=== PATIENT | female | born 1960 | race Caucasian/White ===

== ENCOUNTER 2020-03-05 10:50 | Inpatient (IN) ==
[~2020-03-05 10:50] MED LIST: Famotidine 20 MG/2 ML VIAL IVP ONE
[2020-03-05] MEDS ORDERED: Clindamycin 900 MG/50 ML 900 MG/50 ML IV.SOLN IVPB ONE (11:21)
[2020-03-05] MEDS ORDERED: Ringers Solution, Lactated 1,000 ML IVC SCH ×2 (11:30→16:01)
[2020-03-05] MEDS ORDERED: Pregabalin 50 MG CAPSULE PO ONE (11:31)
[2020-03-05] MEDS ORDERED: Acetaminophen IV 1,000 MG/100 ML INFUS..BTL IVPB ONE (11:31)
[2020-03-05] MEDS ORDERED: Ropivacaine/PF 0.5% 30 ML VIAL ONE (11:42)
[2020-03-05] MEDS ORDERED: *HR* FentaNYL (PF) 100 MCG/2 ML VIAL ONE ×2 (11:42→13:29)
[2020-03-05] MEDS ORDERED: *HR* Midazolam HCl 2 MG/2 ML VIAL ONE (11:42)
[2020-03-05] MEDS ORDERED: ROPIVACAINE/PF/NS 0.25% 1 EACH SYRINGE INTRAART ONE (11:42)
[2020-03-05] MEDS ORDERED: *HR* Succinylcholine 200 MG/10 ML VIAL IVP ONE (11:50)
[2020-03-05] MEDS ORDERED: Dexamethasone 4 MG/ML VIAL ONE (11:50)
[2020-03-05] MEDS ORDERED: Lidocaine -MPF 2% 2 ML VIAL ONE (11:50)
[2020-03-05] MEDS ORDERED: Ondansetron 4 MG/2 ML VIAL ONE ×2 (11:50→12:18)
[2020-03-05] MEDS ORDERED: *HR* Propofol 200 MG/20 ML VIAL IVP ONE (11:51)
[2020-03-05] MEDS ORDERED: Lidocaine HCL 4 ML Topical Solution (Laryng-O-Jet Kit Sterile Pak) TP ONE (11:53)
[2020-03-05] MEDS ORDERED: Ondansetron 4 MG/2 ML VIAL IVP ONE (12:08)
[2020-03-05] MEDS ORDERED: Ondansetron 4 MG/2 ML VIAL IVP PRN ×2 (12:12→16:01)
[2020-03-05] MEDS ORDERED: *HR* Metoprolol 5 MG/5 ML VIAL IVP PRN (12:12)
[2020-03-05] MEDS ORDERED: *HR* FentaNYL (PF) 100 MCG/2 ML VIAL IVP PRN (12:12)
[2020-03-05] MEDS ORDERED: *HR* OxyCODONE Immed Rel 5 MG TABLET PO PRN ×2 (12:12→16:01)
[2020-03-05] MEDS ORDERED: Promethazine Syrup 6.25 MG/5 ML PO PRN (12:12)
[2020-03-05] MEDS ORDERED: Gabapentin 100 MG CAPSULE PO ONE (12:12)
[2020-03-05] MEDS ORDERED: Morphine Sulfate 2 MG/ML SYRINGE IVP PRN (12:14)
[2020-03-05] MEDS ORDERED: Povidone-Iodine 45 ML, Sodium Chloride IRRigation 1,000 ML IR ONE (12:40)
[2020-03-05] MEDS ORDERED: Ethanol\\Acetic Acid\\Na Ace\\Ben 1,000 ML IRRIG.SOLN IR ONE (12:56)
[2020-03-05] MEDS ORDERED: Vancomycin 1,000 MG VIAL ONE (13:00)
[2020-03-05] MEDS ORDERED: *HR* PHENYLEPHRINE 1,000 MCG/10 ML SYRINGE IVP ONE (13:40)
[2020-03-05] MEDS ORDERED: *HR* Rocuronium Bromide 50 MG/5 ML VIAL ONE (14:02)
[2020-03-05 15:53] LABS: Hematocrit 43.1 % (35.3-44.9)
[2020-03-05] MEDS ORDERED: Ibuprofen 600 MG TABLET PO PRN (16:01)
[2020-03-05] MEDS ORDERED: Sennosides 8.6 MG TABLET PO PRN (16:01)
[2020-03-05] MEDS ORDERED: Naloxone 0.4 MG/ML INJ IVP PRN (16:01)
[2020-03-05] MEDS ORDERED: Dextrose Gel 15 GM/37.5 ML TUBE PO PRN ×2 (16:01)
[2020-03-05] MEDS ORDERED: MOM Conc 10 ML UD.LIQ PO PRN (16:01)
[2020-03-05] MEDS ORDERED: *HR* OxyCODONE/APAP 5/325 TABLET PO PRN (16:01)
[2020-03-05] MEDS ORDERED: *HR* Dextrose 50 % in Water (Vial) 50 ML VIAL IVP PRN (16:01)
[2020-03-05] MEDS ORDERED: D5% in Water 1,000 ML IVC PRN (16:01)
[2020-03-05] MEDS ORDERED: Insulin LISPRO 300 UNITS/3 ML VIAL SQ SCH ×2 (16:30→21:00)
[2020-03-05 16:42] VITALS: BP 117/72
[2020-03-05] MEDS ORDERED: Clindamycin 900 MG/50 ML 900 MG/50 ML IV.SOLN IVPB SCH (17:00)
[2020-03-05] MEDS ORDERED: *HR* Enoxaparin 30 MG/0.3 ML SYRINGE SQ SCH ×2 (18:00)
[2020-03-06] MEDS ORDERED: Prenatal Vit/FA 1 EACH TABLET PO SCH (09:00)
[2020-03-06] MEDS ORDERED: Furosemide 20 MG TABLET PO SCH (09:00)
[2020-03-06] MEDS ORDERED: Budesonide/Formoterol 160/4.5 1 PUFF INH IH SCH (10:00)
== END 2020-03-05 18:58 | disposition home or self-care (01) | DRG 483 ==
LOC: SAMDAY 10:50 → 3NENU 15:45
PROVIDERS: ADMIT Orthopaedic Surgery; ATTEND Orthopaedic Surgery